=== PATIENT | male | born 1980 | race African-American/Black ===

== ENCOUNTER 2018-12-17 11:59 | Inpatient (IN) | payer BC, SELFPAY ==
--- NOTE | 2018-12-17 12:29 | RAD ---
PORTABLE CHEST ONE VIEW: 12/17/2018 12:06 p.m. HISTORY: Chest pain. FINDINGS: The heart size is normal. No lobar consolidation, pneumothoraces, marisol pulmonary edema, or pleural effusions are seen. IMPRESSION: No acute process. POS: [facility]
[2018-12-17 12:38] LABS: Bacteria/HPF None Seen HPF (None Seen); Bilirubin Negative (Negative); Blood, Urine 1+ (Negative); Clarity Clear (Clear); Glucose, Urine (Dipstick) 30 mg/dL (Negative); Leukocyte Negative Leu/uL (Negative); Nitrite Negative (Negative); Protein, Urine (Dipstick) 50 mg/dL (Neg-Trace); RBC/HPF 0-3 HPF (0-3); Squamous Epithelial None Seen HPF (0-3)
[2018-12-17 12:40] LABS: #Basophils 0.1 thou/uL (0.0-0.2); #Eosinphils 0.1 thou/uL (0.0-0.7); #Lymphocytes 3.3 thou/uL (1.20-3.40); #Monocytes 0.8 thou/uL (0.11-0.59); %Basophils 0.4 % (0.0-1.0); %Eosinophils 0.4 % (0.0-10.0); %Lymphocytes 23.1 % (21.0-51.0); %Monocytes 5.9 % (0.0-10.0); %Neutrophils 70.2 % (42.0-75.0); Hemoglobin 15.6 g/dL (14.0-18.0); Mean Corpuscular Hemoglobin 27.2 pg (27.0-31.0); Mean Corpuscular Volume 84.8 fL (78.0-98.0); Mean Platelet Volume 7.6 fL (7.4-10.4); Platelet Count 243 thou/uL (130-400); RBC Distribution Width 13.4 % (11.5-14.5); Red Blood Cell (RBC) Count 5.74 mill/uL (4.70-6.10); White Blood Cell (WBC) Count 14.2 thou/uL (4.8-10.8)
[2018-12-17] MEDS ORDERED: Morphine 4 MG/ML VIAL ONE (12:40)
[2018-12-17] MEDS ORDERED: Ondansetron PF 4 MG/2 ML Vial ONE (12:40)
[2018-12-17 13:11] LABS: ALT (SGPT) 133 U/L (8-55); AST (SGOT) 141 U/L (5-34); Albumin 4.4 g/dL (3.5-5.0); Alkaline Phosphatase 79 U/L (40-150); Anion Gap 21 mmol/L (10-20); BUN (Urea Nitrogen) 12 mg/dL (8.9-20.6); Bilirubin, Total 1.5 mg/dL (0.2-1.2); CK (CPK) 314 U/L (30-200); Calc. Creatinine Clearance 0 mL/min (70-130); Calcium 9.9 mg/dL (7.8-10.44); Carbon Dioxide 18 mmol/L (22-29); Chloride 102 mmol/L (98-107); Estimated GFR-MDRD 74; Globulin 2.8 g/dL (2.4-3.5); Glucose 207 mg/dL (70-105); Potassium 3.4 mmol/L (3.5-5.1); Protein, Total 7.2 g/dL (6.0-8.3); Sodium 138 mmol/L (136-145)
[2018-12-17 13:31] LABS: Lipase 13845 U/L (8-78)
--- NOTE | 2018-12-17 13:56 | ULT ---
GALLBLADDER ULTRASOUND: HISTORY: Right upper quadrant pain. FINDINGS: The liver, right kidney, and visualized portions of the pancreas appear normal. There are shadowing gallstones without gallbladder wall thickening or pericholecystic fluid. The common duct measures 9 mm in diameter. No free fluid is seen in the Mireles pouch. IMPRESSION: 1. Cholelithiasis. 2. Mildly dilated common bile duct. POS: [facility]
--- NOTE | 2018-12-17 14:36 | CT ---
CT PULMONARY ANGIOGRAM WITH IV CONTRAST AND 3D POST PROCESSING: CT ABDOMEN AND PELVIS WITH IV CONTRAST: HISTORY: Substernal chest pain. Elevated D-dimer. Right upper quadrant abdominal pain with nausea and vomiti ng. FINDINGS: No filling defects are seen in the pulmonary arterial vasculature to suggest pulmonary embolism. The thoracic aorta is opacified without aneurysm or dissection. No focal areas of consolidation or lung masses are seen. There are tiny nodules in the left lung base. There is a 15 mm, low density, heterogeneous lesion in the right lobe of the liver. No calcified gal lstones are seen. The spleen, adrenal glands, and kidneys are normal. There is peripancreatic fluid in the anterior pararenal space. No pancreatic necrosis is seen. No free air, free fluid, or lymphadenopathy is noted in the abdomen or pelvis. There are vascular ca lcifications without evidence of aneurysmal dilatation of the abdominal aorta. There are mild degene rative changes in the thoracolumbar spine. IMPRESSION: 1. No CT evidence of pulmonary embolism. 2. Tiny left basilar lung nodules. 3. Indeterminate 15 mm right liver lobe lesion. Technetium 99m labeled RBC scan is recommended to e valuate for hemangioma. 4. Pancreatitis. POS: [facility]
[2018-12-17] MEDS ORDERED: Dextrose 5% in Water 1,000 ML IV PRN (15:24)
[2018-12-17] MEDS ORDERED: Ondansetron PF 4 MG/2 ML Vial IVP PRN (15:24)
[2018-12-17] MEDS ORDERED: Acetaminophen 325 MG TAB PO PRN (15:24)
[2018-12-17] MEDS ORDERED: Meperidine HCl/PF 25 MG/ML VIAL SLOW IVP PRN (15:24)
[2018-12-17] MEDS ORDERED: Guaifenesin DM 100-10/5 ML UDCUP PO PRN (15:24)
[2018-12-17] MEDS ORDERED: Senokot S 8.6-50 MG TAB PO PRN (15:24)
[2018-12-17] MEDS ORDERED: Dextrose 50% Abboject 50 ML SYRINGE SLOW IVP PRN (15:24)
[2018-12-17] MEDS ORDERED: HumaLOG 300 UNITS/3 ML VIAL SC PRN ×2 (15:24)
[2018-12-17] MEDS ORDERED: Bisacodyl 10 MG SUPP PR PRN (15:24)
[2018-12-17 15:42] LABS: Cardiac Risk 3.9 (Less than 4.5)
[2018-12-17 16:34] VITALS: BMI 42.3
[2018-12-17] MEDS ORDERED: ISOVUE-370 76%-LOCM 1 ML ONE (16:49)
--- NOTE | 2018-12-17 16:50 | HP ---
REASON FOR ADMISSION: Acute pancreatitis, cholelithiasis, and possible choledocholithiasis. HISTORY OF PRESENTING ILLNESS: The patient gives history of sharp epigastric pain from last night. He had severe nausea and vomiting. The patient had similar episode a month back and took multiple doses of Rolaids, which apparently relieved his pain. He tried doing the same, but the pain was unrelenting. The patient somehow managed to sleep it off. This morning, he started to dry heave again. The abdominal pain in the epigastric area got worse. There is no radiation of this pain. He also had this pain going to the right upper quadrant. He felt very weak. As the pain got worse, the patient made it to the emergency room. On arrival here, the patient was found to have had a lipase of nearly 14,000. Currently, pain is bearable after he has received morphine. No history of alcohol usage. No prior history of increased cholesterol. PAST MEDICAL AND SURGICAL HISTORY: He has had a corneal transplant done 2 years back and obesity. No other surgical history. CURRENT MEDICATIONS: None. ALLERGIES: NO KNOWN DRUG ALLERGIES. PERSONAL HISTORY: Smokes half pack a day. Occasionally uses marijuana, a joint. Does not abuse alcohol or other drugs. FAMILY HISTORY: Both parents are living. Both have diabetes. Father also had a stroke two months back and he has hypertension as well. CODE STATUS: Full. REVIEW OF SYSTEMS: CONSTITUTIONAL: Negative for weight loss or gain, ability to conduct usual activities. SKIN: Negative for rash, itching. EYES: Negative for double vision, pain. ENT/MOUTH: Negative for nose bleeding, neck stiffness, pain, tenderness. CARDIOVASCULAR: Negative for palpitations, dyspnea on exertion, orthopnea. RESPIRATORY: Negative for shortness of breath, wheezing, cough, hemoptysis, fever or night sweats. GASTROINTESTINAL: Negative for poor appetite, abdominal pain, heartburn, nausea , vomiting, constipation, or diarrhea. GENITOURINARY: Negative for urgency, frequency, dysuria, nocturia. MUSCULOSKELETAL: Negative for pain, swelling. NEUROLOGIC/PSYCHIATRIC: Negative for anxiety, depression. ALLERGY/IMMUNOLOGIC: Negative for skin rash, bleeding tendency. PHYSICAL EXAMINATION: GENERAL: The patient is a 38-year-old male, who is currently not in any acute distress. VITAL SIGNS: Blood pressure 126/84, pulse 96 per minute, respiratory rate 18 per minute, temperature 97.6 degrees Fahrenheit, and saturating 99% on room air. NECK: Supple. No elevated JVD. HEENT: Eyes, extraocular muscles are intact. Pupils are reacting to light. Oral cavity, mucous membranes are moist. No exudates or congestion. CARDIOVASCULAR SYSTEM: S1 and S2 heard. Regular rhythm. RESPIRATORY SYSTEM: Air entry, 2+ bilateral. No rales or rhonchi. ABDOMEN: Soft. There is tenderness in the right upper quadrant. No rigidity or guarding. EXTREMITIES: No peripheral edema or calf tenderness. VASCULAR SYSTEM: Peripheral pulses, 2+ bilateral. No ischemic ulcerations or gangrene. CENTRAL NERVOUS SYSTEM: No gross focal deficits noted. The patient is alert, awake, and oriented well. PSYCHIATRIC SYSTEM: The patient's mood is euthymic. No hallucinations or delusions. LABORATORY DATA: White count of 14, H and H 15 and 48, platelet count 243, MCV is 84 with 70% neutrophils. Potassium 3.4, serum bicarb 18, BUN is 12, creatinine 1.3, serum glucose 207, total bilirubin 1.5. AST and ALT of 141 and 133. Alkaline phosphatase 79. CK level is 314. Troponin I is less than 0.01. BNP less than 10. Albumin is 4.4, triglycerides are 105, LDL is 121, lipase is 13,845. UA shows no evidence of infection. CT angio of the chest done shows no evidence of PE. There are tiny left basilar lung nodules. There is a 15 mm right liver lobe lesion and signs of pancreatitis seen. There is peripancreatic fluid in the anterior pararenal space. No pancreatic necrosis is seen. No free air, free fluid, or lymphadenopathy seen in the abdomen or pelvis. This was CT angio chest and CT abdomen and pelvis with IV contrast. Chest x-ray done shows no acute process. Right upper quadrant ultrasound done shows shadowing gallstones without gallbladder wall thickening or pericholecystic fluid. Common duct measures 9 mm in diameter. CLINICAL IMPRESSION AND PLAN: The patient will be admitted to medical floor for acute pancreatitis, possible choledocholithiasis, cholelithiasis. Likely has new onset diabetes versus elevated glucose due to pancreatic inflammation. He will be kept n.p.o. for now and he will be on normal saline at 200 mL per hour. We will obtain MRCP stat to rule out choledocholithiasis. We will obtain consultation with Dr. Pablo Dias for Gastroenterology and Dr. Hogan for General Surgery. Meperidine p.r.n. for pain, and be on moderate scale Humalog coverage. If the patient was to get worse or develop complicated pancreatitis, he will be moved to a higher level of care like ICU are IMCU. For now, we will continue to closely monitor him. Further workup will depend on the MRCP results. The patient will eventually need cholecystectomy at some point depending on how he progresses with his acute pancreatitis. Job ID: [id number] [facility]ENTER[facility]sen
[2018-12-17] MEDS: Sodium Chloride 0.9% 1,000 ML IV SCH ×3 (17:02→23:30)
[2018-12-17] MEDS ORDERED: Lactated Ringer's 1,000 ML IV SCH (18:30)
[2018-12-17] MEDS: Famotidine 20 MG TAB PO SCH (20:11)
--- NOTE | 2018-12-17 21:42 | CON ---
DATE OF CONSULTATION: 12/17/2018 CHIEF COMPLAINT: Abdominal pain. HISTORY OF PRESENT ILLNESS: Mr. Connelly is a 38-year-old man, who presented to the emergency room with severe aching upper epigastric to right upper quadrant pain that started around 7 o'clock this morning. He ate some pork chops last night and vomited a little while afterwards. He did not have any pain at that point and went to bed. He woke up the next morning with severe pain that would not go away, so he came to the emergency room for further care. He received a dose of morphine in the emergency room and the pain went away and has not returned. He did have a similar pain that was not quite as severe and only lasted a couple hours around a month ago. He has had no diarrhea, constipation, or blood in the stool. His last bowel movement was last night and was formed and normal. He has had no chest pain or shortness of breath. PAST MEDICAL HISTORY: Obesity. PAST SURGICAL HISTORY: Corneal transplant two years ago. FAMILY HISTORY: Negative for GI malignancy. SOCIAL HISTORY: He smokes half pack a day. Occasional marijuana. No alcohol. ALLERGIES: NO KNOWN DRUG ALLERGIES. MEDICATIONS: Prior to admission, none. REVIEW OF SYSTEMS: Negative x10 systems reviewed except as stated in the history of present illness. PHYSICAL EXAMINATION: VITAL SIGNS: Temperature is 98.8, pulse 85, and blood pressure 133/78. GENERAL: He is in no acute distress. Alert and oriented x3. HEENT: Eyes have no scleral icterus. Oropharynx is clear without lesions. NECK: No cervical or supraclavicular lymphadenopathy. LUNGS: Clear to auscultation bilaterally. HEART: Regular rate and rhythm without murmur. ABDOMEN: Soft, currently nontender and his bowel sounds are present. He is nondistended. EXTREMITIES: No lower extremity edema. NEURO: Cranial nerves are grossly intact. LABORATORY DATA: White blood cell count 14.2, hemoglobin 15.6, and platelets 243. Creatinine 1.32, baseline creatinine is 1.11 back in June of 2016. Bilirubin 1.5, AST 141, ALT 133, alkaline phosphatase 79, lipase was 13,845, and albumin 4.4. IMAGING: Ultrasound of the abdomen showed a 9 mm common bile duct and cholelithiasis. He did have a CT angiogram of the chest that showed a 15 mm right liver lobe lesion, was indeterminate and inflammatory changes around the pancreas consistent with pancreatitis. IMPRESSION: 1. Acute gallstone pancreatitis. His pain is resolved over the last 3 hours. I suspect he passed a gallstone. 2. Cholelithiasis. 3. Indeterminate 15 mm liver lesion. RECOMMENDATIONS: 1. It appears he received 1 L of saline in the ER and is now on normal saline at 200 mL/hour. I will bolus an additional liter of lactated Ringer's now. 2. Recheck the liver tests in the morning. If his bilirubin is increasing tomorrow, then we would plan for ERCP. If the bilirubin is improving, then next step will be laparoscopic cholecystectomy with intraoperative cholangiogram. I think we can hold off MRCP for now. 3. Eventually consider CT liver mass protocol or MRI liver mass protocol to further evaluate the 15 mm liver lesion incidentally identified by CT angiogram. Job ID: [id number]
[2018-12-18 05:26] LABS: #Eosinphils 0.1 thou/uL (0.0-0.7); #Lymphocytes 3.9 thou/uL (1.20-3.40); #Monocytes 0.6 thou/uL (0.11-0.59); #Neutrophils 4.7 thou/uL (1.40-6.50); %Basophils 0.3 % (0.0-1.0); %Eosinophils 1.4 % (0.0-10.0); %Lymphocytes 41.7 % (21.0-51.0); %Monocytes 6.7 % (0.0-10.0); %Neutrophils 49.8 % (42.0-75.0); Hemoglobin 14.1 g/dL (14.0-18.0); Mean Corpuscular HGB CONC 32.8 g/dL (32.0-36.0); Mean Corpuscular Hemoglobin 27.9 pg (27.0-31.0); Mean Platelet Volume 7.8 fL (7.4-10.4); Platelet Count 238 thou/uL (130-400); RBC Distribution Width 13.2 % (11.5-14.5); Red Blood Cell (RBC) Count 5.06 mill/uL (4.70-6.10); White Blood Cell (WBC) Count 9.4 thou/uL (4.8-10.8)
[2018-12-18 05:50] LABS: ALT (SGPT) 101 U/L (8-55); AST (SGOT) 52 U/L (5-34); Albumin 3.7 g/dL (3.5-5.0); Alkaline Phosphatase 64 U/L (40-150); Anion Gap 10 mmol/L (10-20); BUN (Urea Nitrogen) 9 mg/dL (8.9-20.6); Bilirubin, Total 0.6 mg/dL (0.2-1.2); Calc. Creatinine Clearance 233 mL/min (70-130); Calcium 8.8 mg/dL (7.8-10.44); Carbon Dioxide 24 mmol/L (22-29); Chloride 107 mmol/L (98-107); Estimated GFR-MDRD Greater than 90; Globulin 2.6 g/dL (2.4-3.5); Glucose 92 mg/dL (70-105); Potassium 3.8 mmol/L (3.5-5.1); Protein, Total 6.3 g/dL (6.0-8.3); Sodium 137 mmol/L (136-145)
[2018-12-18 06:03] LABS: Lipase 1473 U/L (8-78)
[2018-12-18] MEDS: Sodium Chloride 0.9% 1,000 ML IV SCH ×4 (08:50→20:29)
[2018-12-18] MEDS: Famotidine 20 MG TAB PO SCH ×2 (08:50→20:27)
[2018-12-18] MEDS: Enoxaparin Sodium 40 MG/0.4 ML SYRINGE SC SCH (08:51)
--- NOTE | 2018-12-18 12:10 | PDOC.HOSPP ---
- Subjective Encounter Date: 12/18/18 Encounter Time: 09:00 Subjective: no abd pain or nausea feels good - Objective Vital Signs & Weight: Vital Signs (12 hours) Temp Pulse Resp BP BP Pulse Ox 12/18/18 11:23 98.1 F 68 18 156/97 H 98 12/18/18 08:00 98 12/18/18 06:52 98.3 F 69 17 150/85 H 98 12/18/18 04:00 98.3 F 75 20 132/83 98 Weight Weight 348 lb I&O: 12/17/18 12/18/18 12/19/18 06:59 06:59 06:59 Output Total 1999 Balance -1999 Result Diagrams: 12/18/18 04:43 12/18/18 04:43 Additional Labs: Accuchecks 12/18/18 04:34 POC Glucose 108 ROS - Medication Medications: Active Medications Generic Name Dose Route Start Last Admin Trade Name Freq PRN Reason Stop Dose Admin Enoxaparin Sodium 40 mg 12/18/18 09:00 12/18/18 08:51 Lovenox SC 40 mg 0900 JUAN Administration Famotidine 20 mg 12/17/18 21:00 12/18/18 08:50 Pepcid PO 20 mg BID JUAN Administration Sodium Chloride 1,000 mls @ 200 mls/hr 12/17/18 15:30 12/18/18 08:50 Normal Saline 0.9% IV 1,000 mls .Q5H JUAN Administration - Exam NAD, awake alert Eye: PERRL, anicteric sclera ENT: no oropharyngeal lesions, moist mucosa Neck: supple, no JVD Heart: RRR, no murmur Respiratory: no wheezes, no rales, no ronchi Gastrointestinal: soft, non-tender, non-distended, normal bowel sounds Extremities: no cyanosis, no edema Neurological: CN's grossly intact, no focal deficits Musculoskeletal: normal tone, no muscle wasting Psychiatric: normal affect, A&O x 3 Hosp A/P (1) Acute pancreatitis Code(s): K85.90 - ACUTE PANCREATITIS WITHOUT NECROSIS OR INFECTION, UNSP Status: Acute Qualifiers: Pancreatitis type: biliary (2) Obesity Code(s): E66.9 - OBESITY, UNSPECIFIED Status: Chronic Qualifiers: Obesity classification: adult class 3 (BMI >= 40) Body mass index: BMI 40.0 -44.9 (3) Cholelithiasis Code(s): K80.20 - CALCULUS OF GALLBLADDER W/O CHOLECYSTITIS W/O OBSTRUCTION Status: Acute Qualifiers: Cholelithiasis location: gallbladder - Plan for lap evy in am lipase [place] come [place] 1400 from [id number] clinically abd pain has resolved continue iv fluids x 24hrs hemostable dc plan likely in am if stable after lap evy
--- NOTE | 2018-12-18 13:30 | CON ---
DATE OF CONSULTATION: 12/18/2018 CHIEF COMPLAINT: Gallstone pancreatitis HISTORY OF PRESENT ILLNESS: This is a 38-year-old male, who presented with acute onset of severe abdominal pain, epigastric, radiating to his back. He has never had this pain before. He denies known history of previous jaundice, gallstones, pancreatitis. Tend to have elevated lipase as well as gallstones on an ultrasound. His common bile duct was normal. He has been hemodynamically stable and his pancreatitis symptoms are improving. PAST MEDICAL AND SURGICAL HISTORY: Surgical history includes corneal transplant 2 years ago. Medical history otherwise negative. MEDICATIONS: Medicines taken daily none. ALLERGIES: NO KNOWN DRUG ALLERGIES. SOCIAL HISTORY: Smokes half a pack. Occasional marijuana. No other drugs or alcohol. REVIEW OF SYSTEMS: 10-system review of systems is otherwise negative unless described above. PHYSICAL EXAMINATION: VITAL SIGNS: Blood pressure 156/97, pulse 68, respirations 18, temperature 98.1. HEENT: Sclerae anicteric. Oropharynx is clear. NECK: No lymphadenopathy. CHEST: Clear. HEART: Regular rate and rhythm. ABDOMEN: Soft. Tender in the epigastric and right upper quadrant but not too severe. EXTREMITIES: No ischemia or edema to extremities. LABORATORY DATA: White blood cell count is 9, hemoglobin 14. Creatinine 0.96. Bilirubin is normal at 0.6. Lipase is 1473 down from . Ultrasound shows cholelithiasis, mildly dilated common bile duct at 9 mm. ASSESSMENT: Gallstone pancreatitis. PLAN: Laparoscopic cholecystectomy tomorrow with intraoperative cholangiogram. Risks, benefits, and alternatives were discussed. If he gives consent, we will do this tomorrow. Job ID: [id number]
--- NOTE | 2018-12-18 13:54 | PRG ---
DATE OF SERVICE: 12/18/2018 SUBJECTIVE: Mr. Connelly has no abdominal pain today. OBJECTIVE: VITAL SIGNS: Temperature 98.1, pulse 68, and blood pressure 156/97. GENERAL: He is in no acute distress. Alert and oriented x3. HEENT: Eyes have no scleral icterus. Oropharynx is clear without lesions. LUNGS: Clear to auscultation bilaterally. HEART: Regular rate and rhythm without murmur. ABDOMEN: Soft, nontender, nondistended. Bowel sounds are present. EXTREMITIES: No lower extremity edema. LABORATORY DATA: White blood cell count 9.4, hemoglobin 14.1, platelets 238. Bilirubin 0.6, AST 52, ALT 101, alkaline phosphatase 64, lipase 1473, creatinine 0.96. IMPRESSION: Acute gallstone pancreatitis. He is now abdominal pain free and his liver tests are improving, which indicate that he passed a stone out. RECOMMENDATIONS: He has been evaluated by Dr. Hogan. The plan will be for laparoscopic cholecystectomy with intraoperative cholangiogram tomorrow. If the IOC shows a stone, then we can follow up with ERCP either the same day or the next day. Job ID: [id number]
[2018-12-19] MEDS: Sodium Chloride 0.9% 1,000 ML IV SCH ×3 (00:30→16:45)
[2018-12-19] MEDS: Enoxaparin Sodium 40 MG/0.4 ML SYRINGE SC SCH (07:20)
[2018-12-19] MEDS: Famotidine 20 MG TAB PO SCH ×2 (08:06→20:24)
[2018-12-19 08:36] LABS: ALT (SGPT) 67 U/L (8-55); AST (SGOT) 28 U/L (5-34); Albumin 3.8 g/dL (3.5-5.0); Alkaline Phosphatase 59 U/L (40-150); Anion Gap 10 mmol/L (10-20); BUN (Urea Nitrogen) 6 mg/dL (8.9-20.6); Bilirubin, Total 0.6 mg/dL (0.2-1.2); Calc. Creatinine Clearance 260 mL/min (70-130); Carbon Dioxide 22 mmol/L (22-29); Chloride 108 mmol/L (98-107); Estimated GFR-MDRD Greater than 90; Globulin 3.2 g/dL (2.4-3.5); Glucose 84 mg/dL (70-105); Lipase 340 U/L (8-78); Sodium 136 mmol/L (136-145)
[2018-12-19 09:40] LABS: #Eosinphils 0.4 thou/uL (0.0-0.7); #Lymphocytes 3.5 thou/uL (1.20-3.40); #Monocytes 0.8 thou/uL (0.11-0.59); #Neutrophils 3.3 thou/uL (1.40-6.50); %Basophils 0.1 % (0.0-1.0); %Eosinophils 4.5 % (0.0-10.0); %Lymphocytes 43.9 % (21.0-51.0); %Monocytes 9.8 % (0.0-10.0); %Neutrophils 41.8 % (42.0-75.0); Hemoglobin 13.9 g/dL (14.0-18.0); Mean Corpuscular HGB CONC 32.4 g/dL (32.0-36.0); Mean Corpuscular Hemoglobin 27.2 pg (27.0-31.0); Mean Corpuscular Volume 83.7 fL (78.0-98.0); Mean Platelet Volume 7.6 fL (7.4-10.4); Platelet Count 225 thou/uL (130-400); RBC Distribution Width 13.2 % (11.5-14.5); Red Blood Cell (RBC) Count 5.13 mill/uL (4.70-6.10); White Blood Cell (WBC) Count 7.9 thou/uL (4.8-10.8)
[2018-12-19] MEDS ORDERED: Bupivacaine/Epinephrine 0.25% 30 ML VIAL ONE (10:31)
[2018-12-19] MEDS ORDERED: Iothalamate Meglumine 60% 50 ML VIAL FS ONE (10:31)
[2018-12-19] MEDS ORDERED: cefOXitin 2 GM VIAL ONE (10:46)
[2018-12-19] MEDS ORDERED: Sodium Chloride 0.9% 100 ML ONE (10:46)
[2018-12-19] MEDS ORDERED: Fentanyl 100 MCG/2 ML VIAL ONE ×2 (10:51→13:09)
[2018-12-19] MEDS ORDERED: Midazolam HCl 2 mg/2 ml Vial ONE (10:51)
[2018-12-19] MEDS ORDERED: Lidocaine 2% Jelly 5 ML TUBE ONE (10:52)
[2018-12-19] MEDS ORDERED: Rocuronium Bromide 10 MG/ML (10ML VIAL) ONE (12:03)
[2018-12-19] MEDS ORDERED: ePHEDrine 50 MG/ML VIAL ONE (12:03)
[2018-12-19] MEDS ORDERED: Glycopyrrolate 0.2 MG/ML 5 ML SYRINGE ONE (12:03)
[2018-12-19] MEDS ORDERED: Lidocaine 1% PF 5 ML VIAL ONE (12:03)
[2018-12-19] MEDS ORDERED: Indocyanine Green 25 MG/10 ML VIAL ONE (12:03)
[2018-12-19] MEDS ORDERED: Ondansetron PF 4 MG/2 ML Vial ONE (12:03)
[2018-12-19] MEDS ORDERED: Dexamethasone 20 MG/5 ML VIAL ONE (12:03)
[2018-12-19] MEDS ORDERED: PROPOFOL 200 MG/20 ML VIAL ONE (12:03)
--- NOTE | 2018-12-19 12:18 | RAD ---
Intraoperative cholangiogram: 12/19/2018 HISTORY: Cholecystectomy FINDINGS: 2 images from an intraoperative cholangiogram provided. Both images demonstrate contrast me katelin within the common bile duct and intrahepatic biliary ducts with no discrete filling defects seen. Contrast media seen within the duodenum. The study is slightly limited by motion. IMPRESSION: Intraoperative cholangiogram as above.
[2018-12-19] MEDS ORDERED: Promethazine HCl 25 MG/ML VIAL IM PRN ×2 (12:35→14:35)
[2018-12-19] MEDS ORDERED: Ondansetron HCl/PF 4 MG/2 ML Vial IVP PRN (12:35)
[2018-12-19] MEDS ORDERED: Promethazine HCl 25 MG/ML VIAL SLOW IVP PRN (12:35)
[2018-12-19] MEDS ORDERED: Mag-Al 1200 mg/1200 mg/30 ML UDCUP PO PRN (14:35)
[2018-12-19] MEDS ORDERED: Dextrose 50% Abboject 50 ML SYRINGE SLOW IVP PRN (14:35)
[2018-12-19] MEDS ORDERED: Dextrose 5% in Water 1,000 ML IV PRN (14:35)
[2018-12-19] MEDS ORDERED: hydrALAZINE 20 MG/ML VIAL SLOW IVP PRN (14:35)
[2018-12-19] MEDS ORDERED: Ondansetron PF 4 MG/2 ML Vial IVP PRN (14:35)
[2018-12-19] MEDS ORDERED: Calcium Carbonate 500 MG ChewTAB PO PRN (14:35)
[2018-12-19] MEDS ORDERED: Morphine 2 MG/ML SYRINGE SLOW IVP PRN (15:32)
--- NOTE | 2018-12-19 15:32 | PDOC.HOSPP ---
- Subjective Encounter Date: 12/19/18 Encounter Time: 15:00 Subjective: is post op, no nausea or sob - Objective Vital Signs & Weight: Vital Signs (12 hours) Temp Pulse Resp BP BP Pulse Ox 12/19/18 07:18 98.2 F 68 20 137/81 100 12/19/18 04:00 98.9 F 73 20 131/87 98 Weight Weight 348 lb I&O: 12/18/18 12/19/18 12/20/18 06:59 06:59 06:59 Intake Total 3599 Output Total 1999 -1999 3599 Result Diagrams: 12/19/18 09:27 12/19/18 07:50 - Exam NAD, awake alert Eye: PERRL, anicteric sclera ENT: no oropharyngeal lesions, dry oral mucosa Neck: supple, no JVD Heart: RRR, no murmur Respiratory: no wheezes, no rales Gastrointestinal: soft, non-distended, normal bowel sounds Extremities: no cyanosis, no edema Neurological: CN's grossly intact, no focal deficits Psychiatric: normal affect, A&O x 3 Hosp A/P (1) Acute pancreatitis Code(s): K85.90 - ACUTE PANCREATITIS WITHOUT NECROSIS OR INFECTION, UNSP Status: Acute Qualifiers: Pancreatitis type: biliary (2) Obesity Code(s): E66.9 - OBESITY, UNSPECIFIED Status: Chronic Qualifiers: Obesity classification: adult class 3 (BMI >= 40) Body mass index: BMI 40.0 -44.9 (3) Cholelithiasis Code(s): K80.20 - CALCULUS OF GALLBLADDER W/O CHOLECYSTITIS W/O OBSTRUCTION Status: Acute Qualifiers: Cholelithiasis location: gallbladder Plan: s/p lap cholecystectomy 12/19/2018 - Plan had lap evy today with normal cholangiogram, d/w . lipase has come down to 300's from [id number] on admission clinically abd pain has resolved oral solid low fat diet hemostable dc plan likely in am if stable
--- NOTE | 2018-12-19 16:24 | PRG ---
DATE OF SERVICE: 12/19/2018 SUBJECTIVE: Mr. Connelly had cholecystectomy today. Intraoperative cholangiogram was clear. He has no abdominal pain. OBJECTIVE: VITAL SIGNS: Temperature 98.3, pulse 75, blood pressure 138/86. GENERAL: He is in no acute distress. Awake and alert. LUNGS: Clear to auscultation bilaterally. HEART: Regular rate and rhythm. ABDOMEN: Soft, nontender. IMPRESSION: 1. Gallstone pancreatitis. 2. Cholelithiasis status post cholecystectomy. Intraoperative cholangiogram is clear. RECOMMENDATIONS: Discharge home is anticipated for tomorrow. I will sign off. Please call if GI can be of assistance. Job ID: [id number]
[2018-12-19] MEDS: Ibuprofen 200 MG TAB PO PRN (16:43)
[2018-12-19] MEDS: Famotidine/PF 20 mg/2ml Vial SLOW IVP SCH (20:24)
[2018-12-20 06:32] LABS: #Lymphocytes 2.8 thou/uL (1.20-3.40); #Monocytes 0.9 thou/uL (0.11-0.59); #Neutrophils 7.1 thou/uL (1.40-6.50); %Basophils 0.1 % (0.0-1.0); %Eosinophils 0.2 % (0.0-10.0); %Lymphocytes 25.7 % (21.0-51.0); %Monocytes 8.3 % (0.0-10.0); %Neutrophils 65.7 % (42.0-75.0); Hemoglobin 13.5 g/dL (14.0-18.0); Mean Corpuscular HGB CONC 32.7 g/dL (32.0-36.0); Mean Corpuscular Hemoglobin 27.5 pg (27.0-31.0); Mean Corpuscular Volume 84.2 fL (78.0-98.0); Mean Platelet Volume 7.5 fL (7.4-10.4); Platelet Count 245 thou/uL (130-400); RBC Distribution Width 13.2 % (11.5-14.5); White Blood Cell (WBC) Count 10.7 thou/uL (4.8-10.8)
[2018-12-20 06:57] LABS: ALT (SGPT) 58 U/L (8-55); AST (SGOT) 22 U/L (5-34); Albumin 3.8 g/dL (3.5-5.0); Alkaline Phosphatase 57 U/L (40-150); Anion Gap 12 mmol/L (10-20); BUN (Urea Nitrogen) 8 mg/dL (8.9-20.6); Bilirubin, Total 0.5 mg/dL (0.2-1.2); Calc. Creatinine Clearance 243 mL/min (70-130); Calcium 9.3 mg/dL (7.8-10.44); Carbon Dioxide 23 mmol/L (22-29); Chloride 106 mmol/L (98-107); Estimated GFR-MDRD Greater than 90; Glucose 103 mg/dL (70-105); Potassium 4.3 mmol/L (3.5-5.1); Protein, Total 6.8 g/dL (6.0-8.3); Sodium 137 mmol/L (136-145)
[2018-12-20] MEDS: Famotidine/PF 20 mg/2ml Vial SLOW IVP SCH (07:03)
[2018-12-20 07:21] VITALS: BP 146/84; TEMP 98.4
--- NOTE | 2018-12-20 07:30 | PDOC.GSPN ---
Surgery Progress Note: Subj - Subjective Patient reports: positive flatus, pain well controlled, voiding w/o difficulty, no bowel movement, tolerating a regular diet Narrative: Mr. Connelly is a 38 year old male who is post op day 1 following cholecystectomy with cholangiogram. Patient has no complaints this morning and is tolerating solid foods well. He is ambulating without difficulty and denies nausea, vomiting, or abdominal pain. Surgery Progress Note: Obj - Vital signs Vital signs: Vital Signs - Most Recent Temp Pulse Resp BP Pulse Ox 98.4 F 68 18 146/84 H 99 12/20/18 07:20 12/20/18 07:20 12/20/18 07:20 12/20/18 07:20 12/20/18 07:20 - Physical Exam General: no distress Cardiovascular: regular rate and rhythm Respiratory: clear to auscultation Abdomen: soft, non tender, nondistended, positive bowel sounds Surgery Progress Note: Results - Labs Result Diagrams: 12/20/18 06:09 12/20/18 06:09 Lab results: Laboratory Results - last 24 hr 12/20/18 12/20/18 06:09 06:09 WBC 10.7 RBC 4.90 Hgb 13.5 L Hct 41.3 L MCV 84.2 MCH 27.5 MCHC 32.7 RDW 13.2 Plt Count 245 MPV 7.5 Neutrophils % 65.7 Lymphocytes % 25.7 Monocytes % 8.3 Eosinophils % 0.2 Basophils % 0.1 Neutrophils # 7.1 H Lymphocytes # 2.8 Monocytes # 0.9 H Eosinophils # 0.0 Basophils # 0.0 Sodium 137 Potassium 4.3 Chloride 106 Carbon Dioxide 23 Anion Gap 12 BUN 8 L Creatinine 0.92 Estimated GFR (MDRD) Greater than 90 Glucose 103 Calcium 9.3 Total Bilirubin 0.5 AST 22 ALT 58 H Alkaline Phosphatase 57 Serum Total Protein 6.8 Albumin 3.8 Globulin 3.0 Albumin/Globulin Ratio 1.3 Surgery Progress Note: A/P - Problem (1) Cholelithiasis Current Visit: Yes Code(s): K80.20 - CALCULUS OF GALLBLADDER W/O CHOLECYSTITIS W/O OBSTRUCTION Status: Acute Qualifiers: Cholelithiasis location: gallbladder - Plan Plan: Mr. Connelly is a 38 year old male who is post op day 1 following cholecystectomy with cholangiogram. 1. Advance diet as tolerated 2. Anticipate discharge today
--- NOTE | 2018-12-20 07:55 | DIS ---
DATE OF ADMISSION: 12/17/2018 DATE OF DISCHARGE: 12/20/2018 PRIMARY CARE PHYSICIAN: None. DISPOSITION: Discharged home. FINAL DIAGNOSES: 1. Acute pancreatitis. 2. Cholelithiasis. 3. Obesity. 4. Elevated transaminases. DISCHARGE MEDICATIONS: Tylenol No. 3 one every 4 hours as needed for pain, #30. ALLERGIES: NO KNOWN DRUG ALLERGIES. PENDING AT TIME OF DISCHARGE: Pathology on his gallbladder. DIET: As tolerated. CONSULTATIONS: Dr. Pablo Dias, Gastroenterology; Dr. aDrren Hogan, General Surgery. PROCEDURES: Laparoscopic cholecystectomy. HOSPITAL COURSE: The patient presented with abdominal pain, found to have acute pancreatitis by laboratory. His initial lipase was 13,845. Followup was 1473. Transaminases were elevated. He had evidence of acute kidney injury with elevated creatinine of 1.3, which with fluids came down to 0.96. His initial white count was elevated to 14,000. Subsequent studies were normal. A laparoscopic cholecystectomy was done, 12/19. The patient is doing most excellently today. Vital signs are stable. Abdomen is benign. Wounds are clean. He is being discharged to be followed up by Dr. Hogan. Job ID: [id number]
[2018-12-20] MEDS: Famotidine 20 MG TAB PO SCH (08:26)
[2018-12-20] MEDS: Ibuprofen 200 MG TAB PO PRN (08:26)
--- NOTE | 2018-12-21 09:58 | OP ---
DATE OF PROCEDURE: 12/19/2018 PREOPERATIVE DIAGNOSIS: Gallstone pancreatitis. POSTOPERATIVE DIAGNOSIS: Gallstone pancreatitis. PROCEDURE PERFORMED: Laparoscopic cholecystectomy, intraoperative cholangiogram. ANESTHESIA: General. ESTIMATED BLOOD LOSS: None. COMPLICATIONS: None. SPECIMEN: Gallbladder. FINDINGS: Normal cholangiogram. DESCRIPTION OF PROCEDURE: The patient was taken to the operating room and laid supine on the operating room table. After general anesthetic was obtained, the abdomen was shaved, prepped, and draped in a sterile fashion. Straight incision was made above the umbilicus. Cautery was used to dissect down to and score the fascia. Abdominal cavity was entered bluntly using a Libert[place] clamp. Holding stitch of PDS was placed on each side of the fascia. Juan Diego trocar was placed. High-flow pneumoperitoneum was obtained. Upper midline 5 mm port, two right upper quadrant 5 mm ports were placed under direct visualization. Gallbladder was retracted from the gallbladder fossa. The peritoneum was opened anteriorly and posteriorly. The critical view of triangle was seen showing only the cystic duct and cystic artery branching medial to lateral. There were no other branching structures. A clip was placed on the cystic duct. A small ductotomy was made just proximal to that. A cholangiocatheter was brought in through a separate incision and placed in the cystic duct, and the cholangiogram was performed, which showed good contrast flow into the duodenum, right and left hepatic duct system without obstruction. The cholangiocatheter was removed. Two clips were placed proximally on the cystic duct, was cut using laparoscopic scissors. Cystic artery was taken using two clips proximally, one clip distally, and cut using laparoscopic scissors. Cautery was used to dissect the gallbladder out of the gallbladder fossa. Gallbladder was placed in an EndoCatch bag and brought out through the Juan Diego. There was no bleeding or bile in the liver bed. The right upper quadrant was irrigated using sterile solution. All port sites were infiltrated using local anesthetic and removed. Pneumoperitoneum was let down. PDS was used to close the fascial defect above the umbilicus. All incisions were irrigated and closed using 4-0 Monocryl and Dermabond. The patient was sent to Recovery in stable condition. All instrument counts, needle counts, and lap counts were correct. Job ID: [id number]
== END 2018-12-20 08:46 | disposition home or self-care (01) | DRG 417 ==
LOC: ERS 11:59 → T4-A 15:00
PROVIDERS: ADMIT Internal Medicine; ATTEND Internal Medicine
PROC: 0FT44ZZ Resection of Gallbladder, Percutaneous Endoscopic Approach (ICD-10-PCS; principal; 2018-12-19)
PROC: BF10YZZ Fluoroscopy of Bile Ducts using Other Contrast (ICD-10-PCS; 2018-12-19)
DX: K80.20 Calculus of gallbladder without cholecystitis without obstruction (principal); K85.10 Biliary acute pancreatitis without necrosis or infection; Z68.41 Body mass index [BMI] 40.0-44.9, adult; F17.210 Nicotine dependence, cigarettes, uncomplicated; F12.90 Cannabis use, unspecified, uncomplicated; E66.9 Obesity, unspecified
CPT/HCPCS: 36415; 36416; 47532; 71045; 71275; 74177; 76705; 80053; 80061; 81003; 81015; 82550; 83690; 83880; 84484; 85025; 85379; 88304; 93005; 96361; 96374; 96375; J0694; J1100; J1650; J2001; J2250; J2270; J2405; J2704; J3010; J3490; Q9966